=== PATIENT | female | born 1980 | race Caucasian/White ===

== ENCOUNTER 2016-08-13 04:25 | Inpatient (IN) | payer OTHER ==
[2016-08-13] MEDS ORDERED: Sodium Chloride 0.9% 10 ML Syringe FLUSH PRN (04:44)
[2016-08-13] MEDS ORDERED: Nalbuphine 20 MG/1 ML Amp IVPUSH PRN (04:44)
[2016-08-13] MEDS ORDERED: Ondansetron 4 MG/2 ML SDV IVPUSH PRN ×2 (04:44→06:30)
[2016-08-13] MEDS ORDERED: Lidocaine 1% 50 ML MDV INJECT SCH (04:45)
[2016-08-13] MEDS ORDERED: Oxytocin/Lactated Ringers 10 UNIT/1,000 ML BAG IV SCH (04:45)
[2016-08-13] MEDS: Lactated Ringers 1,000 ML IV SCH ×2 (05:15→06:17)
[2016-08-13] MEDS ORDERED: fentaNYL 100 MCG/2 ML SDV ONE (06:05)
[2016-08-13] MEDS ORDERED: Bupivacaine/fentaNYL/NS 100 ML Bag EPIDUR SCH (06:30)
[2016-08-13] MEDS ORDERED: ePHEDrine 50 MG/ML SDV IVPUSH PRN (06:30)
[2016-08-13] MEDS ORDERED: fentaNYL 100 MCG/2 ML SDV EPIDUR PRN (06:30)
--- NOTE | 2016-08-13 06:32 | PCM.PREANE ---
Preanesthetic Assessment - Anesthesia/Transfusion/Family Hx Anesthesia History: Prior Anesthesia Without Reaction Family History of Anesthesia Reaction: No Transfusion History: No Prior Transfusion(s) Intubation History: Unknown - Review of Systems General: No Symptoms Pulmonary: No Symptoms Cardiovascular: No Symptoms Gastrointestinal: No symptoms Neurological: No Symptoms Other: Reports: Thyroid Problems (hypothyroid), Sinus Problem (seasonal allergies) - Physical Assessment NPO Status Date: 08/12/16 NPO Status Time: 17:00 Pulse: 90 O2 Sat by Pulse Oximetry: 99 Respiratory Rate: 20 Blood Pressure: 130/86 Temperature: 36.6 C Vital Signs: Last Vital Signs Temp 36.6 C 08/13/16 04:45 Pulse 90 08/13/16 04:45 Resp 20 08/13/16 04:45 BP 130/86 08/13/16 04:45 Pulse Ox Height: 1.75 m Weight: 106.141 kg ASA Class: 2 Mental Status: Alert & Oriented x3 Airway Class: Mallampati = 2 Dentition: Reports: Normal Dentition, Caries Thyro-Mental Finger Breadths: 3 Mouth Opening Finger Breadths: 3 ROM/Head Extension: Full Lungs: Clear to auscultation, Normal respiratory effort Cardiovascular: Regular Rate, Regular Rhythm, No Murmurs - Lab Values: Laboratory Last Values WBC 11.03 K/mm3 (3.98-10.04) H 08/13/16 05:06 RBC 3.95 M/mm3 (3.98-5.22) L 08/13/16 05:06 Hgb 11.3 gm/L (11.2-15.7) 08/13/16 05:06 Hct 34.4 % (34.1-44.9) 08/13/16 05:06 MCV 87.1 fl (79.4-94.8) 08/13/16 05:06 MCH 28.6 pg (25.6-32.2) 08/13/16 05:06 MCHC 32.8 g/dl (32.2-35.5) 08/13/16 05:06 RDW Std Deviation 42.5 fL (36.4-46.3) 08/13/16 05:06 Plt Count 252 K/mm3 (182-369) 08/13/16 05:06 MPV 10.1 fl (9.4-12.3) 08/13/16 05:06 Neut % (Auto) 69.3 % (34.0-71.1) 08/13/16 05:06 Lymph % (Auto) 21.9 % (19.3-51.7) 08/13/16 05:06 [place] % (Auto) 7.7 % (4.7-12.5) 08/13/16 05:06 Eos % (Auto) 0.7 (0.7-5.8) 08/13/16 05:06 Baso % (Auto) 0.1 % (0.1-1.2) 08/13/16 05:06 Neut # (Auto) 7.64 K/mm3 (1.56-6.13) H 08/13/16 05:06 Lymph # (Auto) 2.42 K/mm3 (1.18-3.74) 08/13/16 05:06 [place] # (Auto) 0.85 K/mm3 (0.24-0.36) H 08/13/16 05:06 Eos # (Auto) 0.08 K/mm3 (0.04-0.36) 08/13/16 05:06 Baso # (Auto) 0.01 K/mm3 (0.01-0.08) 08/13/16 05:06 Above labs reviewed and noted. 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: Other OB/BYN History: HX OF X2, VAGINAL BIRTHS Other Musculoskeletal History: MASS RIGHT HAND/PALM Endocrine/Metabolic History: Reports: Hypothyroidism Other Endocrine/Metabolic History: HYPOTHYROIDISM Other Dermatologic History: INTERMITTENT HIVES OF UNEXPLAINED ORIGIN - Past Surgical History Other Musculoskeletal Surgeries/Procedures:: Surgery on hand - SUBSTANCE USE Smoking Status *Q: Never Smoker Second Hand Smoke Exposure: No Days Per Week of Alcohol Use: 0 (less than 1) Number of Drinks Per Day: 0 Total Drinks Per Week: 0 Recreational Drug Use History: No - HOME MEDS Home Medications: Home Meds Cetirizine [ZyrTEC] 10 mg PO DAILY 07/20/14 [History] Levothyroxine 150 mcg PO ACBREAKFAST 08/13/16 [History] Vits #93/Iron Fum/FA [ Formula Tablet] 1 tab PO DAILY 08/13/16 [History] - CURRENT (IN HOUSE) MEDS Current Meds: Current Medications Lactated Ringer's (Ringers, Lactated) 1,000 mls @ 100 mls/hr IV ASDIRECTED [facility] Last Admin: 08/13/16 06:17 Dose: 100 mls/hr Oxytocin/Lactated Ringer's (Pitocin In Lr 10 Units/1,000 Ml) 10 unit in 1,000 mls @ 500 mls/hr IV TITRATE [facility] Lidocaine HCl (Xylocaine 1%) 50 ml INJECT .ASDIRECTED [facility] Nalbuphine HCl (Nubain) 10 mg IVPUSH Q2H PRN PRN Reason: Pain (moderate 4-6) Ondansetron HCl (Zofran) 4 mg IVPUSH Q4H PRN PRN Reason: Nausea/Vomiting Sodium Chloride (Saline Flush) 10 ml FLUSH ASDIRECTED PRN PRN Reason: Keep Vein Open Discontinued Medications Fentanyl (Sublimaze) Confirm Administered Dose 100 mcg .ROUTE .STK-MED ONE Stop: 08/13/16 06:06
--- NOTE | 2016-08-13 11:48 | PCM.SN ---
- Free Text/Narrative Note: Valencia is a 35-year-old 3 para /2/ white female who is at 39-1/7 weeks gestational age today NADIYA of 08/19/2016 who was admitted today 08/13/2016 with with spontaneous rupture membranes this a.m. Rupture membranes occurred at approximately 3:30 hours. Patient started in labor spontaneously. She progressed rapidly to complete cervical dilation by approximately 1100 hrs. She pushed 2 contractions and delivered a viable, shannon, 8 pound 9.2 ounce ( 3890 g) male in a left occiput anterior position at 1126 hrs. on 2016. The baby was 21.5 inches in length, had Apgars of 8 and 9 and was vigorous at . The baby was placed on the mom's abdomen. The cord was clamped 2 and cut by the father. The umbilical cord had 3 vessels. Cord blood was obtained. Patient had an epidural in place for labor and analgesia and this worked well for anesthesia as patient had a bilateral labia minora, superficial laceration. Left side was approximately 6 cm long and was closed with 6 interrupted sutures of 3-0 Monocryl. Left side was approximately 3 cm long was closed with 2 interrupted sutures of 3-0 Monocryl. Ice was applied to the perineum after the placenta delivered. The placenta delivered spontaneously, was complete in appearance and normal in anatomy. It delivered in a Haritha fashion at 1134 hrs. Pitocin had been started IV after the delivery of the baby. There was minimal bleeding and a stable loss was 100 mL. Patient plans to nurse. Condition: Good
[2016-08-13] MEDS ORDERED: Lanolin 100% Cream 7 GM Tube TOP PRN (12:00)
[2016-08-13] MEDS ORDERED: Acetaminophen 325 MG Tab PO PRN (12:00)
[2016-08-13] MEDS ORDERED: Witch Hazel Medicated Pads 100/Jar TOP PRN (12:00)
[2016-08-13] MEDS ORDERED: Ibuprofen 600 MG Tab PO PRN (12:00)
[2016-08-13] MEDS ORDERED: Bupivacaine 0.25% 10 ML SDV ONE (12:00)
[2016-08-13] MEDS ORDERED: Benzocaine/Menthol 20%-0.5% Spray 56 GM Canister TOP PRN (12:00)
[2016-08-13] MEDS ORDERED: Docusate Sodium 100 MG Cap PO PRN (12:00)
[2016-08-14] MEDS ORDERED: Levothyroxine 150 MCG Tab PO SCH (06:00)
--- NOTE | 2016-08-14 06:50 | HP ---
DATE OF ADMISSION: 08/13/2016 ADMISSION DIAGNOSES: Term intrauterine at 39 and 1/7th weeks gestational age, spontaneous rupture of membranes, early active labor. HISTORY OF PRESENT ILLNESS: The patient is a 35-year-old, 3, para 1-2-0-2, white female, who is at 39 and 1/7th weeks gestational age with an NADIYA of 08/19/2016. She reports spontaneous rupture of membranes with clear amniotic fluid resulting early this morning. She arrived in Labor and Delivery keren approximately every 5 minutes. She was comfortable. Gross rupture of membranes was confirmed by nursing staff. heart tones are reassuring. The patient desires an epidural in Labor and Delivery. 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 Her last menstrual period started on 11/13/2015, was definite. Cycles occur every 28 days. Menarche age 15. Duration 5 days. Ultrasound was dated by her last menstrual period, but supported by ultrasounds done on 01/15/2016, 12/21/2015, 04/04/2016, 05/07/2016. Her past obstetric history includes the followin. Male infant born 07/06/2009 at 40 weeks gestational age-7 pounds 8 ounces- [facility] in [place]-child's name is Tye. 2. Twin gestation, delivered 11/11/2012 at 35 weeks gestational age after 6 hours of labor including twin A, 5 pounds 14 ounces male infant-mild respiratory distress-child's name is Jose; and twin B, 3 pounds 2 ounces- male -trisomy 18-child's name is Giovanni-this child secondary to the trisomy 18. COURSE: course has been relatively unremarkable. Her [place] depression screen score on 02/23/2016 was zero. Group B strep screen is negative. [place] test on 02/10/2016 indicated a male infant, and was normal. She has hypothyroidism and is on replacement and is clinically euthyroid. She plans on epidural Labor and Delivery. She plans to nurse. course started on 01/15/2016 at 9 weeks gestational age. She had regular visits throughout the care. Her weight gain was from 195 pounds to 234 pounds for a 39 pounds weight gain. Fundal height growth was appropriate. LABORATORY DATA: Laboratory testing in showed her blood to be O positive with negative antibody screen. Initial hemoglobin was 13.7 and platelets were 350,000. She is rubella immune. RPR is nonreactive. Urine culture showed Staph epidermidis and was treated. Her hepatitis B and HIV assays were both negative. Her gonorrhea and chlamydia assays were both negative. Her TSH was 4.970. Her second trimester hemoglobin was 11.7, and the patient was started on iron therapy at that time. Her platelets were 274,000. Her 1-hour glucose tolerance test was 107. Group B strep screen was negative. ALLERGIES: None. CURRENT MEDICATIONS: 1. Levothyroxine sodium 150 mcg per day. 2. Olopatadine hydrochloride ophthalmic solution 0.1% one drop both eyes daily. 3. Levothyroxine 137 mcg every other day alternating with 150 mcg every other day. 4. vitamins daily. 5. Iron therapy ferrous sulfate-325 mg per day. 6. Zyrtec p.r.n. for allergies. PAST MEDICAL HISTORY: 1. Vaginal delivery x2-twin gestation and shannon gestation. 2. Hypothyroidism, on replacement. 3. Hives for which she takes Zyrtec. 4. History of abnormal Pap smear with loop excision biopsy of the cervix. PAST SURGICAL HISTORY: 1. Right hand surgery in 2014. 2. Loop electrosurgical excision procedure of the cervix in 2006 for cervical dysplasia. FAMILY HISTORY: Mother is alive and well at age 66. Father is alive and has had 2 heart attacks, at age 69. One sister alive and well. Maternal grandmother secondary to natural causes. Maternal grandfather secondary to natural causes. Paternal grandfather secondary to [place]. Paternal grandmother secondary to natural causes. No bleeding, blood clotting, anesthesia, or disorders otherwise noted in the family. SOCIAL HISTORY: The patient is . is Matthew Pelayo. She works at [employer]. They live in [place]. She does not use any significant amounts of alcohol, drugs, or tobacco. REVIEW OF SYSTEMS: SKIN: Negative. CARDIOVASCULAR: Negative. RESPIRATORY: No asthma or shortness of breath noted. BREASTS: Changes associated with . GASTROINTESTINAL: Negative. GENITOURINARY: Changes associated with . MUSCULOSKELETAL: Some swelling noted in bilateral lower extremities. NEUROLOGICAL: Negative. PHYSICAL EXAMINATION: VITAL SIGNS: On last evaluation in clinic, her weight was 234 pounds which has increased from 195 pounds at first visit. Her blood pressure is 115/70, heart rate was 145. Her height is 5 feet 9 inches. Body mass index pre- was 28.8. GENERAL: The patient is a well-developed, well-nourished, pleasant female, stated age, in no acute distress. SKIN: Warm and dry without lesions. LUNGS: Clear with good breath sounds in all lung bryant. CARDIOVASCULAR: Shows regular rate and rhythm without murmurs. BREASTS: Breast exam is deferred, having been done at first visit and found to be normal. ABDOMEN: Protuberant with with fundal height of 40+ cm. Baby in a vertex presentation. GENITOURINARY: Cervix was 2+ cm, very soft, -3 station, mid position, 70% effaced on evaluation 08/12/2016. EXTREMITIES: Show trace edema. NEUROLOGICAL: Grossly within normal limits. ASSESSMENT: 1. Term intrauterine at 39 and 1/7th weeks gestational age, spontaneous rupture of membranes, early labor. 2. The patient desires an epidural delivery. 3. Group B strep screen negative. 4. [place] test is negative for genetic abnormalities. 5. Hypothyroidism, on replacement and clinically euthyroid. 6. The patient plans to nurse. PLAN: 1. Anticipate normal spontaneous vaginal delivery. 2. Epidural for pain early . 3. Supported nursing decision. 4. CBC prior to epidural to evaluate platelet count. MMODAL /[id number]
[2016-08-14] MEDS ORDERED: Prenatal Multivitamin with Calcium/Folic Acid/Iron Tab PO SCH (09:00)
--- NOTE | 2016-08-14 11:22 | PCM.DCSUM1 ---
Discharge Summary - Hospital Course Free Text/Narrative:: Valencia is a 35-year-old 3 para /2/02 white female who is at 39-1/7 weeks gestational age today NADIYA of 08/19/2016 who was admitted today 08/13/2016 with with spontaneous rupture membranes this a.m. Rupture membranes occurred at approximately 3:30 hours. Patient started in labor spontaneously. She progressed rapidly to complete cervical dilation by approximately 1100 hrs. She pushed 2 contractions and delivered a viable, shannon, 8 pound 9.2 ounce ( 3890 g) male in a left occiput anterior position at 1126 hrs. on 2016. The baby was 21.5 inches in length, had Apgars of 8 and 9 and was vigorous at . The baby was placed on the mom's abdomen. The cord was clamped 2 and cut by the father. The umbilical cord had 3 vessels. Cord blood was obtained. Patient had an epidural in place for labor and analgesia and this worked well for anesthesia as patient had a bilateral labia minora, superficial laceration. Left side was approximately 6 cm long and was closed with 6 interrupted sutures of 3-0 Monocryl. Left side was approximately 3 cm long was closed with 2 interrupted sutures of 3-0 Monocryl. Ice was applied to the perineum after the placenta delivered. The placenta delivered spontaneously, was complete in appearance and normal in anatomy. It delivered in a Haritha fashion at 1134 hrs. Pitocin had been started IV after the delivery of the baby. There was minimal bleeding and a stable loss was 100 mL. Patient plans to nurse. Condition: Good has done well. Nursing. Minimal lochia. Desires discharge home. - Discharge Data Discharge Date: 08/14/16 Discharge Disposition: Home, Self-Care 01 Condition: Good - Patient Instructions Diet: Regular Diet as Tolerated (nursing diet) Activity: As Tolerated (No intercourse or tampons till vaginal discharge resolves) Driving: May Drive Today Showering/Bathing: May Shower (May take a bath.) Notify Provider of: Fever, Increased Pain, Swelling and Redness, Nausea and/or Vomiting - Discharge Plan Home Medications: Home Meds Cetirizine [ZyrTEC] 10 mg PO DAILY 07/20/14 [History] Levothyroxine 150 mcg PO ACBREAKFAST 08/13/16 [History] Vits #93/Iron Fum/FA [ Formula Tablet] 1 tab PO DAILY 08/13/16 [History] Ibuprofen [IJD: Ibuprofen] 600 mg PO Q4H PRN #30 tablet 08/14/16 [Rx] Referrals: Freedom Negron MD [Primary Care Provider] - (RTC 6 weeks-Dr. negron) - Discharge Summary/Plan Comment DC Time >30 min.: No Discharge Summary/Plan Comment: 1. Regular nursing diet 2. Precautions re: pain, fever, bleeding d/w pt 3. meds per home med list printed, d/w and given to patient. Dx: 39 week pg-delivered Conditon: good - Patient Data Vitals - Most Recent: Last Vital Signs Temp 36.3 C 08/14/16 04:19 Pulse 74 08/14/16 04:19 Resp 16 08/14/16 04:19 BP 120/82 08/14/16 04:19 Pulse Ox 99 08/14/16 04:19 Weight - Most Recent: 106.141 kg I&O - Last 24 hours: Intake & Output 08/13/16 08/14/16 08/14/16 22:59 06:59 14:59 Intake Total 0 180 Balance 0 180 Med Orders - Current: Current Medications Acetaminophen (Tylenol) 650 mg PO Q4H PRN PRN Reason: mild pain or fever Benzocaine/Menthol (Dermoplast Pain Relief [place]) 0 gm TOP ASDIRECTED PRN PRN Reason: Perineal Comfort Measure Last Admin: 08/13/16 14:04 Dose: 1 can Docusate Sodium (Colace) 100 mg PO BID PRN PRN Reason: Constipation Emollient Ointment (Lansinoh Hpa) 0 gm TOP ASDIRECTED PRN PRN Reason: Sore Nipples Ibuprofen (Motrin) 600 mg PO Q4H PRN PRN Reason: Mild pain or fever Last Admin: 08/14/16 07:36 Dose: 600 mg Levothyroxine Sodium (Levothyroxine) 150 mcg PO ACBREAKFAST [facility] Last Admin: 08/14/16 06:23 Dose: 150 mcg Prenat Multivit/Retail Financial Analyst/Iron/Folic Ac ( Plus Iron) 1 each PO DAILY [facility] Last Admin: 08/14/16 09:00 Dose: 1 each Aury Howard (Carlos) 1 pad TOP ASDIRECTED PRN PRN Reason: Hemorrhoid pain Last Admin: 08/13/16 14:04 Dose: 1 jar Discontinued Medications Ephedrine Sulfate (Ephedrine Sulfate) 5 mg IVPUSH ASDIRECTED PRN PRN Reason: Hypotension Fentanyl (Sublimaze) Confirm Administered Dose 100 mcg .ROUTE .STK-MED ONE Stop: 08/13/16 06:06 Last Admin: 08/13/16 06:55 Dose: 100 mcg Fentanyl (Sublimaze) 100 mcg EPIDUR Q3H PRN PRN Reason: Pain Fentanyl/Bupivacaine HCl (Fentanyl/Bupivacaine/Ns 2 Mcg-0.125% 100 Ml) 100 ml EPIDUR ASDIRECTED [facility] Last Admin: 08/13/16 06:54 Dose: 100 ml Lactated Ringer's (Ringers, Lactated) 1,000 mls @ 100 mls/hr IV ASDIRECTED [facility] Last Admin: 08/13/16 06:17 Dose: 100 mls/hr Oxytocin/Lactated Ringer's (Pitocin In Lr 10 Units/1,000 Ml) 10 unit in 1,000 mls @ 500 mls/hr IV TITRATE [facility] Last Admin: 08/13/16 11:30 Dose: 500 mls/hr Lidocaine HCl (Xylocaine 1%) 50 ml INJECT .ASDIRECTED [facility] Nalbuphine HCl (Nubain) 10 mg IVPUSH Q2H PRN PRN Reason: Pain (moderate 4-6) Ondansetron HCl (Zofran) 4 mg IVPUSH Q4H PRN PRN Reason: Nausea/Vomiting Ondansetron HCl (Zofran) 4 mg IVPUSH ONETIME PRN PRN Reason: Nausea/Vomiting Sodium Chloride (Saline Flush) 10 ml FLUSH ASDIRECTED PRN PRN Reason: Keep Vein Open *Q Meaningful Use (DIS) - VTE *Q VTE Criteria *Q: - Stroke *Q Stroke Criteria *Q: - AMI *Q AMI Criteria *Q:
--- NOTE | 2016-08-14 11:24 | PCM48HPAN ---
Post Anesthesia Note - EVALUATION WITHIN 48HRS OF ANESTHETIC Vital Signs in Normal Range: Yes Patient Participated in Evaluation: Yes Respiratory Function Stable: Yes Airway Patent: Yes Cardiovascular Function Stable: Yes Hydration Status Stable: Yes Pain Control Satisfactory: Yes Nausea and Vomiting Control Satisfactory: Yes Mental Status Recovered: Yes - COMMENTS/OBSERVATIONS Free Text/Narrative:: Patient resting in bed at assessment. Doing well. Denies any headache, residual weakness/numbness to LE. Pt did state she had slight back soreness but was tolerable. "feels like a bruise" No other complaints
[2016-08-14 13:29] VITALS: BP 115/84
== END 2016-08-14 12:30 | disposition home or self-care (01) | DRG 775 ==
LOC: JD.OBCHECK 04:25 → JD.OB 04:25 → JD.OBCHECK 04:44 → JD.OB 04:45 → OBSVTOIN 11:26
PROVIDERS: ADMIT Obstetrics & Gynecology; ATTEND Obstetrics & Gynecology
PROC: 10E0XZZ Delivery of Products of Conception, External Approach (ICD-10-PCS; principal; 2016-08-13)
PROC: 0UQMXZZ Repair Vulva, External Approach (ICD-10-PCS; 2016-08-13)
PROC: 00HU33Z Insertion of Infusion Device into Spinal Canal, Percutaneous Approach (ICD-10-PCS; 2016-08-13)
PROC: 3E0R3CZ (ICD-10-PCS; 2016-08-13)
DX: O42.02 Full-term premature rupture of membranes, onset of labor within 24 hours of rupture (principal); Z3A.39 39 weeks gestation of pregnancy; Z37.0 Single live birth; O99.284 Endocrine, nutritional and metabolic diseases complicating childbirth; E03.9 Hypothyroidism, unspecified; Z79.899 Other long term (current) drug therapy; Z88.8 Allergy status to other drugs, medicaments and biological substances
CPT/HCPCS: 36415; 85025; 85027; A9270-GY; J2590; J3010; J7120

== ENCOUNTER 2018-06-26 06:43 | Day surgery (SDC) | payer OTHER ==
[~2018-06-26 06:43] MED LIST: Lactated Ringers 1,000 ML IV SCH; Lidocaine 1% 4 ML ONE; Lidocaine 1%/Sod Bicarbonate in NS 8.4% 1 ML Syringe IDERM PRN; Midazolam 1 MG/ML 2 ML SDV ONE; Ondansetron 4 MG/2 ML SDV ONE; Propofol 200 MG/20 ML SDV ONE; Sodium Chloride 0.9% 10 ML Syringe FLUSH PRN; ceFAZolin 1 GM Vial ONE; fentaNYL 250 MCG/5 ML SDV ONE
--- NOTE | 2018-06-26 07:12 | PCM.PREANE ---
Preanesthetic Assessment - Procedure Proposed Procedure: uterine D and C, hysteroscopy with novasure endometrial ablation - Anesthesia/Transfusion/Family Hx Anesthesia History: Prior Anesthesia Without Reaction Family History of Anesthesia Reaction: No Transfusion History: No Prior Transfusion(s) Intubation History: Unknown - Review of Systems General: No Symptoms Pulmonary: No Symptoms Cardiovascular: No Symptoms Gastrointestinal: No Symptoms Neurological: No Symptoms Other: Reports: Thyroid Problems - Physical Assessment NPO Status Date: 06/25/18 NPO Status Time: 20:00 Pulse: 81 O2 Sat by Pulse Oximetry: 98 Respiratory Rate: 16 Blood Pressure: 111/77 Temperature: 97.8 F Height: 5 ft 9 in Weight: 87.634 kg ASA Class: 2 Mental Status: Alert & Oriented x3 Airway Class: Mallampati = 1 Dentition: Reports: Normal Dentition Thyro-Mental Finger Breadths: 3 Mouth Opening Finger Breadths: 3 ROM/Head Extension: Full Lungs: Clear to Auscultation, Normal Respiratory Effort Cardiovascular: Regular Rate, Regular Rhythm - Lab Values: Laboratory Last Values WBC 6.05 K/mm3 (3.98-10.04) 06/12/18 11:22 RBC 4.76 M/mm3 (3.98-5.22) 06/12/18 11:22 Hgb 14.1 gm/L (11.2-15.7) 06/12/18 11:22 Hct 42.1 % (34.1-44.9) 06/12/18 11:22 MCV 88.4 fl (79.4-94.8) 06/12/18 11:22 MCH 29.6 pg (25.6-32.2) 06/12/18 11:22 MCHC 33.5 g/dl (32.2-35.5) 06/12/18 11:22 RDW Std Deviation 39.4 fL (36.4-46.3) 06/12/18 11:22 Plt Count 347 K/mm3 (182-369) 06/12/18 11:22 MPV 9.8 fl (9.4-12.3) 06/12/18 11:22 Neut % (Auto) 51.4 % (34.0-71.1) 06/12/18 11:22 Lymph % (Auto) 40.8 % (19.3-51.7) 06/12/18 11:22 Wirt % (Auto) 6.1 % (4.7-12.5) 06/12/18 11:22 Eos % (Auto) 1.2 (0.7-5.8) 06/12/18 11:22 Baso % (Auto) 0.3 % (0.1-1.2) 06/12/18 11:22 Neut # (Auto) 3.11 K/mm3 (1.56-6.13) 06/12/18 11:22 Lymph # (Auto) 2.47 K/mm3 (1.18-3.74) 06/12/18 11:22 Wirt # (Auto) 0.37 K/mm3 (0.24-0.36) H 06/12/18 11:22 Eos # (Auto) 0.07 K/mm3 (0.04-0.36) 06/12/18 11:22 Baso # (Auto) 0.02 K/mm3 (0.01-0.08) 06/12/18 11:22 - Allergies Allergies/Adverse Reactions: Allergies Allergy/AdvReac Type Severity Reaction Status Date / Time No Known Allergies Allergy Verified 06/25/18 13:37 - Blood Blood Available: No - Acknowledgements Anesthesia Type Planned: General Anesthesia Pt an Appropriate Candidate for the Planned Anesthesia: Yes Alternatives and Risks of Anesthesia Discussed w Pt/Guardian: Yes Pt/Guardian Understands and Agrees with Anesthesia Plan: Yes PreAnesthesia Questionnaire HEENT History: Reports: Other (See Below) Other HEENT History: eye irritation Cardiovascular History: Reports: High Cholesterol Respiratory History: Reports: None Gastrointestinal History: Reports: None Genitourinary History: Reports: UTI, Recurrent 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: HX OF X2, VAGINAL BIRTHS, dysmenorrhea, right breast mass, pelvic pain, menorrhagia, LEEP Other Musculoskeletal History: MASS RIGHT HAND/PALM Neurological History: Reports: None Psychiatric History: Reports: None Endocrine/Metabolic History: Reports: Hypothyroidism Other Endocrine/Metabolic History: HYPOTHYROIDISM Hematologic History: Reports: Anemia Immunologic History: Reports: None Oncologic (Cancer) History: Reports: None Dermatologic History: Reports: Urticaria Other Dermatologic History: INTERMITTENT HIVES OF UNEXPLAINED ORIGIN - Past Surgical History Head Surgeries/Procedures: Reports: None Cardiovascular Surgical History: Reports: None Respiratory Surgical History: Reports: None GI Surgical History: Reports: None Female Surgical History: Reports: None Male Surgical History: Reports: None Neurological Surgical History: Reports: None Other Musculoskeletal Surgeries/Procedures:: Surgery on hand Oncologic Surgical History: Reports: None - SUBSTANCE USE Smoking Status *Q: Never Smoker Tobacco Use Within Last Twelve Months: No Second Hand Smoke Exposure: No Days Per Week of Alcohol Use: 1 (rare) Recreational Drug Use History: No - HOME MEDS Home Medications: Home Meds Cetirizine [ZyrTEC] 10 mg PO DAILY 07/20/14 [History] Levothyroxine 150 mcg PO ACBREAKFAST 08/13/16 [History] Lactobacillus Combination No.4 [Probiotic] 1 cap PO DAILY 06/25/18 [History] - CURRENT (IN HOUSE) MEDS Current Meds: Current Medications Lactated Ringer's (Ringers, Lactated) 1,000 mls @ 125 mls/hr IV ASDIRECTED [facility] Stop: 06/26/18 23:00 Lidocaine/Sodium Bicarbonate (Buffered Lidocaine 1% In Ns 8.4%) 0.25 ml IDERM ONETIME PRN PRN Reason: Prior to IV Start Stop: 06/26/18 18:00 Sodium Chloride (Saline Flush) 10 ml FLUSH ASDIRECTED PRN PRN Reason: Keep Vein Open Stop: 06/26/18 18:00 Discontinued Medications Cefazolin Sodium (Ancef) Confirm Administered Dose 2 gm .ROUTE .STK-MED ONE Stop: 06/26/18 06:43 Fentanyl (Sublimaze) Confirm Administered Dose 250 mcg .ROUTE .STK-MED ONE Stop: 06/26/18 06:43 Lidocaine HCl (Xylocaine-Mpf 1%) Confirm Administered Dose 4 mls @ as directed .ROUTE .STK-MED ONE Stop: 06/26/18 06:43 Midazolam HCl (Versed 1 Mg/Ml) Confirm Administered Dose 2 mg .ROUTE .STK-MED ONE Stop: 06/26/18 06:43 Ondansetron HCl (Zofran) Confirm Administered Dose 4 mg .ROUTE .STK-MED ONE Stop: 06/26/18 06:43 Propofol (Diprivan 20 Ml) Confirm Administered Dose 200 mg .ROUTE .STK-MED ONE Stop: 06/26/18 06:43
[2018-06-26] MEDS ORDERED: Dexamethasone 4 MG/ML 5 ML MDV ONE (07:40)
[2018-06-26] MEDS ORDERED: Ketorolac 30 MG/ML SDV ONE (07:40)
[2018-06-26] MEDS ORDERED: Ondansetron 4 MG/2 ML SDV IVPUSH PRN ×2 (07:46→08:04)
[2018-06-26] MEDS ORDERED: fentaNYL 100 MCG/2 ML SDV IVPUSH PRN (07:46)
[2018-06-26] MEDS ORDERED: HYDROmorphone 0.5 MG/0.5 ML Syringe IVPUSH PRN (07:46)
[2018-06-26] MEDS ORDERED: Ketorolac 30 MG/ML SDV IVPUSH SCH (08:15)
--- NOTE | 2018-06-26 08:15 | PCM.POSTAN ---
POST ANESTHESIA ASSESSMENT - MENTAL STATUS Mental Status: Alert, Oriented - VITAL SIGNS Pulse Rate: 81 SaO2: 100 Resp Rate: 15 Blood Pressure: 116/73 Temperature: 98.4 F - RESPIRATORY Respiratory Status: Respiratory Rate WNL, Airway Patent, O2 Saturation Stable - CARDIOVASCULAR CV Status: Pulse Rate WNL, Blood Pressure Stable - GASTROINTESTINAL GI Status: No Symptoms - PAIN Pain Score: 0 - POST OP HYDRATION Hydration Status: Adequate & Stable
--- NOTE | 2018-06-26 08:17 | PCM.OPNOTE ---
- General Post-Op/Procedure Note Date of Surgery/Procedure: 06/26/18 Operative Procedure(s): Hysteroscopy, dilation and curettage, NovaSure endometrial ablation Findings: Uterus sounded to 10 cm. Uterine cavity was 4.5 cm wide. Uterine cavity was approximate 7 cm long. Wispy endometrial findings were present. Moderate amount of endometrial tissue removed with D&C. Bimanual shows no adnexal abnormalities. Pre Op Diagnosis: 1. Menorrhagia. 2. Dysmenorrhea Post-Op Diagnosis: Same Anesthesia Technique: General LMA Primary Surgeon: Freedom Negron Secondary Surgeon: Roberto Carlos Starr Anesthesia Provider: Puja Horta Pathology: Endometrial curettings Output, Urine Amount: 400 EBL in mLs: 5 Complications: None Condition: Good Free Text/Narrative:: Surgery duration: 11 minutes Procedure: The patient is taking the operative placed in a supine position on the operating table. She received 2 g of Ancef preoperatively for infection prophylaxis and had sequential compression stockings in place for DVT prophylaxis. Patient was given general anesthesia and an LMA was placed for ventilation. She is placed in a dorsal lithotomy position and prepped and draped in usual fashion. An exam under anesthesia was performed. Findings as described above. A weighted speculum was placed in the vagina. Cervix is visualized. It was grasped anteriorly with a single-tooth tenaculum. Uterus was then sounded to a depth of 10 cm. It is from the anterior, mid position. The cervix was dilated to entrance of a 5 mm 12 rigid hysteroscope. This was placed without problem and normal saline was used as a distending medium. The endometrial cavity was visualized. Findings as described above. A D&C was performed. Moderate amount tissue was obtained. Minimal bleeding was encountered. NovaSure endometrial ablation was then performed. Should be noted consent was appropriately signed by the patient prior to the procedure. The cervix was dilated to allow placement of the NovaSure endometrial apparatus. Uterus had sounded to 10 cm, cervixwas 3 cm and uterine cavity length was 7 cm. The NovaSure device was set to 6.5 cm as this was maximal setting. The endometrial cavity was found to be 4.5 cm in width. Uterine cavity integrity check was then performed and the endometrial cavity was then ablated. Energy was 161. The ablation took approximately 57 seconds. The array was collapsed and the apparatus was removed. Hysteroscope was then placed back into the endometrial cavity. Blood was flushed out and the findings were consistent with a cauterized endometrial cavity. At this point the scope was removed. The vagina was cleared of old blood , the cervix was released and the weighted speculum was removed. Patient was returned to supine position and awakened from general anesthesia. She tolerated the procedure well and operating room in good condition.
--- NOTE | 2018-06-26 08:47 | PCM48HPAN ---
Post Anesthesia Note - EVALUATION WITHIN 48HRS OF ANESTHETIC Vital Signs in Normal Range: Yes Patient Participated in Evaluation: Yes Respiratory Function Stable: Yes Airway Patent: Yes Cardiovascular Function Stable: Yes Hydration Status Stable: Yes Pain Control Satisfactory: Yes Nausea and Vomiting Control Satisfactory: Yes Mental Status Recovered: Yes (no complaints-) Pulse Rate: 81 Resp Rate: 14 Temperature: 98.4 F Blood Pressure: 116/73
[2018-06-26 09:34] VITALS: BP 115/75
== END 2018-06-26 09:30 | disposition home or self-care (01) ==
LOC: JD.SDS 06:43
PROVIDERS: ATTEND Obstetrics & Gynecology
DX: N84.0 Polyp of corpus uteri (principal); E78.00 Pure hypercholesterolemia, unspecified; E01.0 Iodine-deficiency related diffuse (endemic) goiter; N63.10 Unspecified lump in the right breast, unspecified quadrant; Z79.899 Other long term (current) drug therapy
CPT/HCPCS: 36415; 58563; 80061; 81001; 81025; 82947; 85025; J0690; J1100; J1885; J2001; J2250; J2405; J2704; J3010; J7120; 00952